=== PATIENT | female | born 1990 ===

== ENCOUNTER 2025-10-21 18:04 | Emergency (ER) | payer OTHER, SELFPAY ==
--- OUTSIDE RECORDS SUMMARY | 2025-10-16 23:59 | XMS_ITS | Continuity of Care Document ---
Author Organization [facility] Address [address] [place] [address]- Care Team Providers Care Radio Repair Teacher Name Role Phone Candi Carroll DO Primary Care Physician Encounter [facility] Date(s): 09/16/25 - 10/16/[address] [address]- Encounter Type: Triage Allergies, Adverse Reactions, Alerts Substance Criticality Severity Reaction Reaction Severity Status Lactose upset stomach Active Other Environmental Allergy Active Immunizations Given and Recorded Vaccine Date Status Refusal Reason SARS-CoV-2 (COVID-19) mRNA-1273 vaccine 10/15/22 G iven SARS-CoV-2 (COVID-19) mRNA-1273 vaccine 07/29/21 R ecorded SARS-CoV-2 (COVID-19) mRNA-1273 vaccine 07/29/21 R ecorded influenza virus vaccine, inactivated 10/15/22 Give n influenza virus vaccine, inactivated 12/26/17 Luis M rded Measles/Mumps/Rubella Virus Vaccine 05/05/92 Recor ded Medications acetaminophen 325 mg oral tablet 2, tablet, By Mouth, Every 4 hours, PRN, # 50 tablet, Refills 0, Maintenance, NEEDED FOR PAIN, 10/01/24 8:28:00 AM EST, Route to Pharmacy Electronically, [id number], 170, cm, 09/16/24 10:21:00 EST, Height, 85.5, kg, 09/08/24 18:58:00 EDT, Dry Weight Start Date: 10/01/24 Status: Ordered Medication Dispense Status: Completed Quantity: 50.0 Unit: tablet Total Allowed Fills: 1 Fills Dispensed: 0 Aerochamber See Instructions, # 1 each, Maintenance, Use with MDI., 07/01/24 5:21:00 PM EDT, Supply, 170, cm, 07/01/24 16:01:00 EDT, Height, 80.9, kg, 05/19/24 19:41:00 EDT, Dry Weight Start Date: 07/01/24 Status: Ordered Medication Dispense Status: Completed Quantity: 1.0 Unit: each Total Allowed Fills: 1 Fills Dispensed: 0 Indications: Shortness of breath; Aerochamber See Instructions, # 1 Unknown, Maintenance, 1 units, 05/17/21 11:02:00 AM EDT, Supply, 171, cm, 05/17/21 10:13:00 EDT, Height, 68.6, kg, 01/04/20 11:23:00 EST, Dry Weight Start Date: 05/17/21 Status: Ordered Medication Dispense Status: Completed Quantity: 1.0 Unit: Unknown Total Allowed Fills: 1 Fills Dispensed: 0 Albuterol (Eqv-ProAir HFA) 90 mcg/inh inhalation aerosol 2 puffs, Inhalation, Every 6 hours, PRN Wheezing/Shortness of Breath, # 18 Gm, 0 Refills, Maintenance, 08/16/25 2:01:00 PM EDT, [facility] #[id number], Partial fill upon patient request if the prescription is for a schedule II opioid drug., 2 puffs Inhalation Every 6 hours,PRN:Wheezing/Shortness of Breath, 170, cm, 08/16/25 13:11:00 EDT, Height, 81, kg, 10/24/24 1:48:00 EST, Dry Weight Start Date: 08/16/25 Status: Ordered Medication Dispense Status: Completed Quantity: 18.0 Unit: g Total Allowed Fills: 1 Fills Dispensed: 0 Indications: Shortness of breath; busPIRone 10 mg oral tablet 10 mg, 1, tablet, By Mouth, 3 times a day, # 270 tablet, Refills 0, Tot. Refills 0, Maintenance, 09/16/25 4:06:00 PM EST, [id number] Partial fill upon patient request if the prescription is for a schedule II opioid drug., 170, cm, 08/16/25 13:11:00 EDT, Height, 81, kg, 10/24/24 1:48:00 EST, Dry Weight Start Date: 09/16/25 Status: Ordered Medication Dispense Status: Completed Quantity: 270.0 Unit: tablet Total Allowed Fills: 1 Fills Dispensed: 0 fluticasone 50 mcg/inh nasal spray 2 sprays = 100 mcg, Nares, Both, Daily, shake well before using, # 15.8 mL, 0 Refills, Maintenance,04/29/24 2:12:00 PM EDT, [place], [id number] Partial fill upon patient request if the prescription is for a schedule II opioid drug., 2 sprays Nares, Both Daily,Instr:shake well before using, 169, cm, 04/29/24 13:39:00 EDT, Height, 78, kg, 08/11/22 17:29:00 EDT, Dry Weight Start Date: 04/29/24 Status: Ordered Medication Dispense Status: Completed Quantity: 15.8 Unit: mL Total Allowed Fills: 1 Fills Dispensed: 0 Home Blood Pressure Monitor Home Blood Pressure Monitor, See Instructions, # 1 each, Refills 0, Tot. Refills 0, Maintenance, For home blood pressure monitoring Dx: Hypertension I10 Duration 99, 09/29/25 9:10:00 AM EST, Supply Start Date: 09/29/25 Status: Ordered Medication Dispense Status: Completed Quantity: 1.0 Unit: each Total Allowed Fills: 1 Fills Dispensed: 0 ibuprofen 600 mg oral tablet 600 mg, 1, tablet, By Mouth, 3 times a day, PRN, # 270 capsule, Refills 0, Tot. Refills 0, Maintenance, as needed for menstrual pain, 09/06/25 12:00:00 PM EDT, Route to Pharmacy Electronically, [facility] #[id number], Partial fill upon patient request if the prescription is for a schedule II opioid drug., 170, cm, 08/16/25 13:11:00 EDT, Height, 81, kg, 10/24/24 1:48:00 EST, Dry Weight Start Date: 09/06/25 Status: Ordered Medication Dispense Status: Completed Quantity: 270.0 Unit: capsule Total Allowed Fills: 1 Fills Dispensed: 0 omeprazole 40 mg oral enteric coated capsule 1 capsule = 40 mg, By Mouth, Daily, TAKE 1 CAPSULE BY MOUTH DAILY 30 MINUTES TO 1 HOUR BEFORE BREAKFAST, # 90 capsule, 0 Refills, Maintenance, 09/16/25 10:33:00 AM EST, [place], [facility]/pharmacy #[id number],Partial fill upon patient request if the prescription is for a schedule II opioid drug., 170, cm, 08/16/25 13:11:00 EDT, Height, 81, kg, 10/24/24 1:48:00 EST, Dry Weight Start Date: 09/16/25 Status: Ordered Medication Dispense Status: Completed Quantity: 90.0 Unit: capsule Total Allowed Fills: 1 Fills Dispensed: 0 ramelteon 8 mg oral tablet 1 tablet = 8 mg, By Mouth, Daily at bedtime, PRN Sleep, # 30 tablet, 0 Refills, Maintenance, 08/16/25 1:47:00 PM EDT, [facility] #[id number], Partial fill upon patient request if the prescription is for aschedule II opioid drug., 170, cm, 08/16/25 13:11:00 EDT, Height, 81, kg, 10/24/24 1:48:00 EST, DryWeight Start Date: 08/16/25 Status: Ordered Medication Dispense Status: Completed Quantity: 30.0 Unit: tablet Total Allowed Fills: 1 Fills Dispensed: 0 Wellbutrin XL 150 mg/24 hours oral tablet, extended release 1 tablet = 150 mg, By Mouth, Every 24 hours, # 90 tablet, 0 Refills, Maintenance, 08/16/25 1:35:00 PM EDT, ER Tablet, [facility] #[id number], Partial fill upon patient request if the prescription is for aschedule II opioid drug., 170, cm, 08/16/25 13:11:00 EDT, Height, 81, kg, 10/24/24 1:48:00 EST, DryWeight Start Date: 08/16/25 Status: Ordered Medication Dispense Status: Completed Quantity: 90.0 Unit: tablet Total Allowed Fills: 1 Fills Dispensed: 0 Problem List Condition Confirmation Course Effective Dates Status Health St atus Informant Anxiety Confirmed Active Bipolar disorder Confirmed Active COVID-19 1 Confirmed 07/29/22 Active Tobacco dependence Confirmed Active 1Problem added by Discern Expert Patient Care team information Care Team Personnel Name: Candi Carroll DO Position: [facility] Resident Member Role: PCP Address: [address] [place] [id number] Telecom: Name: Barry Joshi RN Position: [facility] RN Member Role: Primary Care Nurse Name: Connie Cosby RN Position: [facility] RN Member Role: Primary Care Nurse Name: Jose F Joshi RN Position: [facility] RN Member Role: Primary Care Nurse Name: Ramila Vasquez RN Position: [facility] RN Member Role: Primary Care Nurse Name: Bonnie Mckeon RN Position: [facility] RN Member Role: Primary Care Nurse Name: Ann-Marie Clements RN Position: [facility] RN Member Role: Primary Care Nurse Name: Caroline Staples RN Position: [facility] RN Member Role: Primary Care Nurse Name: Rosy Mason RN Position: [facility] Hospital Pump Servicer Helper Member Role: Primary Care Nurse Care Team Related Persons Name: JADYN MADRID Name: BRODERICK DELLAKATIUSKA Name: STS NONE, PT Name: MYLES GARCIA Insurance Providers Guarantor name: HARRISON BELL Health Plan Information #: 1 Payer: [employer] [facility] [employer] Payer Identifier: NA Member Number: [id number] Group Number: [id number] Subscriber Identifier: NA Relationship to Subscriber: self Coverage Type: Medicaid (Managed Care) Coverage Verification Date: NA Telecom: NA Address: Health Plan Information #: 2 Payer: [employer] Payer Identifier: NA Member Number: [id number] Group Number: [id number] Subscriber Identifier: NA Relationship to Subscriber: self Coverage Type: MEDICAID Coverage Verification Date: NA Telecom: NA Address:
[2025-10-21 18:14] VITALS: BP 148/99; PULSE 72; O2SAT 97
[2025-10-21 18:28] VITALS: BP 139/83; PULSE 67; RESP 18; TEMP 36.8; O2SAT 100; BMI 26.6
--- NOTE | 2025-10-21 18:34 | ED.GENADULT ---
HPI - General Adult General Chief complaint: Nausea/Vomiting/Diarrhea Stated complaint: abd pain n/v, 1x day Related Data Allergies Allergy/AdvReac Type Severity Reaction Status Date / Time No Known Allergies Allergy Verified 10/21/25 18:29 [facility] Social History Social History Advance Directives: No Advance Directives Information Provided: No Physical Exam ED Vital Signs: Vital Signs - 24 hr 10/21/25 18:28 Temperature 98.3 F Pulse Rate 67 Respiratory Rate 18 Blood Pressure 139/83 Pulse Oximetry 100 Oxygen Delivery Method Room Air BMI result Body Mass Index 26.6 Course Course Course Narrative: Rapid medical examination performed in triage by Kerry Yeboah PA-C: Patient is a 35 year old assigned female at presenting to the emergency department with nausea and vomiting. Patient states that she sometimes gets sick after she eats shellfish and yesterday - she ate shellfish. Patient states that she is also lactose intolerant and today - she had a grilled cheese. Patient states that she has had nausea and vomiting all day. Detailed physical exam and review of systems are deferred to the director of events. Labs ordered. Patient placed back in the waiting room pending room availability and results. Patient left the department without completing treatment. Patient left the department before myself or any of the other emergency department clinicians could explain to or review with the patient; physical exam findings, test results, need or lack there of for additional testing, need or lack there of for a procedure to be performed, need or lack there of for hospital admission / transfer, need or lack there of for prescription medication, treatment options, or a treatment plan. Patient's limited physical exam performed in triage showed a non-toxic individual with appropriate breathing, alert and oriented, and ambulating without assistance. Medications Administered Discontinued Medications Generic Name Dose Route Start Last Admin Trade Name Freq PRN Reason Stop Dose Admin Ondansetron HCl 4 mg 10/21/25 18:30 10/21/25 18:33 Ondansetron Odt 4 Mg Tab.Rapdis TRANSLINGU 10/21/25 18:31 4 mg ONCE STA Administration Medical Decision Making Lab Data 10/21/25 18:53 10/21/25 18:53 Labs: Lab Results 10/21/25 Range/Units 18:53 WBC 9.8 (4.8-10.8) X10*3/uL RBC 4.12 L (4.20-5.50) X10*6/uL Hgb 12.1 (12.0-16.0) g/dl Hct 37.2 (37.0-47.0) % MCV 90.3 (80.0-98.0) fL MCH 29.4 (27.0-33.0) pg MCHC 32.5 (31.0-35.0) g/dl RDW 12.7 (11.0-16.0) % Plt Count 236 (160-400) X10*3/uL MPV 11.0 (9.4-12.3) fL Immature Gran % (Auto) 0.4 (0.0-0.4) % Neut % (Auto) 81.0 H (45-73) % Lymph % (Auto) 12.9 L (20-40) % [place] % (Auto) 5.2 (2-11) % Eos % (Auto) 0.2 (0-4) % Baso % (Auto) 0.3 (0-2) % Lymph # (Auto) 1.3 (1.2-4.9) X10*3/uL [place] # (Auto) 0.5 (0.1-1.2) X10*3/uL Eos # (Auto) 0.0 (0.0-0.4) X10*3/uL Baso # (Auto) 0.0 (0.0-0.2) X10*3/uL Abs Immat Gran (auto) 0.04 H (0.00-0.03) X10*3/uL Absolute Neuts (auto) 7.9 (2.0-8.3) x10*3/uL Absolute Nucleated RBC 0.000 (0.0-0.012) X10*3/uL Nucleated RBC % (auto) 0.0 (0.0-0.2) /100WBC Sodium 139 (135-145) mmol/L Potassium 3.8 (3.3-5.1) mmol/L Chloride 107 (96-108) mmol/L Carbon Dioxide 22 (22-29) mmol/L Anion Gap 14 (12-20) BUN 13 (9-16) mg/dL Creatinine 1.00 (0.5-1.4) mg/dL Estim Creat Clear Calc 84.8 Estimated GFR > 60 Random Glucose 110 (60-115) mg/dL Calcium 9.3 (8.4-10.2) mg/dL Magnesium 2.1 (1.6-2.6) mg/dL Total Bilirubin 0.4 (0.0-1.0) mg/dL AST 33 H (5-31) U/L ALT 25 (0-31) U/L Alkaline Phosphatase 78 (39-117) U/L Total Protein 7.8 (6.5-8.0) g/dL Albumin 4.6 (3.5-5.0) g/dL Discharge Plan Discharge Clinical Impression: Nausea & vomiting Qualifiers: Vomiting type: unspecified Qualified Code(s): R11.2 - Nausea with vomiting, unspecified Patient Disposition: Left W/O Completing Treatment Discharge Date/Time: 10/21/25 22:38
[2025-10-21 18:57] LABS: MANUAL DIFF FLAG NO
[2025-10-21 19:03] LABS: Hematocrit 37.2 % (37.0-47.0); Hemoglobin 12.1 g/dl (12.0-16.0); Imm Gran Abs Auto 0.04 X10*3/uL (0.00-0.03); Imm Gran Pct Auto 0.4 % (0.0-0.4); Lymphocytes Absolute Auto 1.3 X10*3/uL (1.2-4.9); Mean Corpuscular HGB Conc 32.5 g/dl (31.0-35.0); Mean Corpuscular Hemoglobin 29.4 pg (27.0-33.0); Mean Corpuscular Volume 90.3 fL (80.0-98.0); NRBC Abs Auto 0.000 X10*3/uL (0.0-0.012); NRBC Pct Auto 0.0 /100WBC (0.0-0.2); Platelet Count 236 X10*3/uL (160-400); Red Blood Count 4.12 X10*6/uL (4.20-5.50); White Blood Count 9.8 X10*3/uL (4.8-10.8)
[2025-10-21 19:15] LABS: Alanine Aminotransferase 25 U/L (0-31); Albumin Level 4.6 g/dL (3.5-5.0); Alkaline Phosphatase 78 U/L (39-117); Anion Gap 14 (12-20); Aspartate Amino Transferase 33 U/L (5-31); Blood Urea Nitrogen 13 mg/dL (9-16); Calcium 9.3 mg/dL (8.4-10.2); Carbon Dioxide 22 mmol/L (22-29); Chloride 107 mmol/L (96-108); Creatinine Clr Calc Pharmacy 84.8; Estimated Glomerular Filt Rate > 60; Magnesium 2.1 mg/dL (1.6-2.6); Potassium 3.8 mmol/L (3.3-5.1); Sodium 139 mmol/L (135-145); Total Protein 7.8 g/dL (6.5-8.0)
== END 2025-10-21 22:38 | disposition left against medical advice (07) ==
PROVIDERS: Physician Assistant Medical; Emergency Provider Emergency Medicine; PCP Pediatrics
DX: R11.2 Nausea with vomiting, unspecified (principal)
CPT/HCPCS: 36415; 80053; 83735; 85025; 99281; 99283